=== PATIENT | female | born 1990 | race Hispanic/Latino ===

== ENCOUNTER 2024-11-09 10:05 | Emergency (ER) | payer SELFPAY ==
[~2024-11-09] VITALS: Ht 154.9 cm; Wt 87.5 kg
[2024-11-09 10:05] VITALS: BP 141/87; PULSE 101; RESP 20; TEMP 98.6
--- NOTE | 2024-11-09 10:13 | EKG ---
[facility] Test Date: 2024-11-09 Test Time: 10:06:00 Pat Name: JALEESA PAIGE Department: [facility] Room: Gender: F Instructional Designer: [id number] : 1990 Requested By: LOAN CONLEY Order Number: [id number] Reading MD: Vince Constantino Measurements Intervals [place] Rate: 104 P: 62 [place]: 155 QRS: 48 QRSD: 77 T: 28 QT: 319 QTc: 420 Interpretive Statements Sinus tachycardia No previous ECG available for comparison Electronically Signed On 11-10-2024 20:01:20 HEADING MACHINE OPERATOR by Vince Constantino Please click the below link to view image of tracing.
--- NOTE | 2024-11-09 10:19 | ERN ---
General Chief Complaint: Chest Pain Stated Complaint: CP Time Seen by MD: 10:10 Time Seen by Midlevel: 10:10 Source: patient History of Present Illness Initial Comments The patient is a 34-year-old female with a past medical history of type 2 diabetes and hyperlipidemia presenting to the emergency department with centralized chest pain that started at 12:00 a.m. today. Patient states she was woken up by the pain. She was seen at [facility] and was told it was her "gallbladder". Denies any other associated symptoms. Denies any recent travel. Denies any shortness for breath, nausea, vomiting, fever, or any other symptoms at this time. Allergies: Coded Allergies: No Known Drug Allergies (Unverified Allergy, Intermediate, 11/09/24) ROS Dictation CONSTITUTIONAL: Negative except for HPI HEAD/FACE: Negative except for HPI EENT: Negative except for HPI RESPIRATORY: Negative except for HPI GASTROINTESTINAL/ABDOMINAL: Negative except for HPI GENITOURINARY: Negative except for HPI MUSCULOSKELETAL: Negative except for HPI INTEGUMENTARY: Negative except for HPI NEUROLOGICAL/PSYCH: Negative except for HPI HEMATOLOGIC/LYMPHATIC: Negative except for HPI All Systems Negative, Except as noted above. 13 point review of systems assessed and all negative except for above. Physical Exam Physical Exam Dictation Vital Signs reviewed General Appearance: Alert, oriented x 3, no acute distress, well developed, nourished, tearful during my examination Head and Face: non-traumatic. Eyes: PERRL, pink conjunctivas, eyelid no trauma, anterior chamber with arcus senilis. Ears: Pinnas intact and no signs of trauma or erythema ear canals clear and no discharge TM no erythema Nose: No discharge, no bleeding. Oropharynx: Mouth normal, tongue pink, pharynx clear,no erythema, tonsils no exudates, no abscesses noted, mucous membrane moist Neck: Supple, non-tender, no thyromegaly, no masses, no JVD, no bruits Breast:Deferred Chest:No tenderness, no crepitus, no paradoxical movement, no retractions Lungs:Clear, well-ventilated, symmetric, no rales, no wheezing, no rhonchi, no stridor, good breath sounds bilaterally Heart: Regular rate, regular rhythm, no murmur, no gallops Vascular: no peripheral edema, Abdomen: Soft, positive bowel sounds, nondistended, no guarding, nontender, no rebound, no masses no hepatomegaly, no splenomegaly, no Anne's sign, no hernias. Rectal: Deferred Genital: Deferred Neurological: Normal speech, motor function intact, sensory function intact Musculoskeletal: Neck nontender, full range of motion, back nontender, full range of motion, Extremities: nontender, full range of motion Skin: Color pink, dry, no turgor, no rash, no lacerations, no abrasions, no contusions. Lymphatic: Deferred Results Laboratory and Microbiology Lab and Micro Result Laboratory Tests Test 11/09/24 10:33 11/09/24 10:35 11/09/24 11:16 White Blood Count 8.7 K/uL (4.8-10.8) Red Blood Count 4.37 MIL/uL (4.00-5.50) Hemoglobin 13.1 g/dL (12.0-16.0) Hematocrit 39.4 % (36-48) Mean Corpuscular Volume 90.2 fL (79-99) Mean Corpuscular Hemoglobin 30.0 pg (27.0-33.0) Mean Corpuscular Hemoglobin Concent 33.2 g/dL (32.0-36.0) Red Cell Distribution Width 12.9 % (11.0-15.5) Platelet Count 328 K/uL (130-400) Mean Platelet Volume 10.3 fL (7.5-10.5) Immature Granulocyte % (Auto) 0.5 % (0-1) Neutrophils (%) (Auto) 67.9 % (40.0-77.0) Lymphocytes (%) (Auto) 25.4 % (21.0-51.0) Monocytes (%) (Auto) 4.7 % (3.0-13.0) Eosinophils (%) (Auto) 1.0 % (0.0-8.0) Basophils (%) (Auto) 0.5 % (0.0-5.0) Neutrophils # (Auto) 5.9 K/uL (1.8-7.7) Lymphocytes # (Auto) 2.2 K/uL (1.0-4.8) Monocytes # (Auto) 0.4 K/uL (0.1-1.0) Eosinophils # (Auto) 0.09 K/uL (0.00-0.70) Basophils # (Auto) 0.04 K/uL (0.00-0.20) Absolute Immature Granulocyte (auto 0.04 K/uL (0-1) Nucleated Red Blood Cells 0.0 % (0.0-0.19) D-Dimer Quantitative (PE/DVT) 1596 ng/mL (0-500) *H Sodium Level 135 mmol/L (136-145) L Potassium Level 4.0 mmol/L (3.5-5.1) Chloride Level 102 mmol/L (101-111) Carbon Dioxide Level 24 mmol/L (21-32) Blood Urea Nitrogen 8 mg/dL (7-18) Creatinine 0.6 mg/dL (0.5-1.0) Glomerular Filtration Rate Calc 121 mL/min (>90) Random Glucose 186 mg/dL (70-105) H Total Calcium 8.9 mg/dL (8.5-10.1) Total Bilirubin 0.2 mg/dL (0.2-1.0) Direct Bilirubin 0.1 mg/dL (0.0-0.3) Aspartate Amino Transf (AST/SGOT) 11 U/L (10-37) Alanine Aminotransferase (ALT/SGPT) 22 U/L (12-78) Alkaline Phosphatase 93 U/L (50-136) Total Creatine Kinase 34 U/L (21-232) Troponin I High Sensitivity < 4 ng/L (4-50) L B-Type Natriuretic Peptide 10 pg/mL (0-100) Total Protein 7.3 g/dL (6.0-8.3) Albumin 3.1 g/dL (3.5-5.0) L Lipase 33 U/L (16-77) Urine Color LIGHT-YELLOW (YELLOW) Urine Appearance CLEAR (CLEAR) Urine pH 5.0 (5.0-8.0) Urine Specific [place] 1.029 (1.001-1.031) Urine Protein NEGATIVE mg/dL (NEGATIVE) Urine Glucose (UA) NEGATIVE mg/dL (NEGATIVE) Urine Ketones NEGATIVE mg/dL (NEGATIVE) Urine Occult Blood NEGATIVE (NEGATIVE) Urine Nitrate NEGATIVE (NEGATIVE) Urine Bilirubin NEGATIVE mg/dL (NEGATIVE) Urine Urobilinogen 0.2 mg/dL (0.2-1.0) Urine Leukocyte Esterase NEGATIVE [place]/uL Urine HCG, Qualitative NEGATIVE (NEGATIVE) Urine Opiates Screen NEGATIVE (NEGATIVE) Urine Barbiturates Screen NEGATIVE (NEGATIVE) Urine Phencyclidine Screen NEGATIVE (NEGATIVE) Urine Amphetamines Screen NEGATIVE (NEGATIVE) Urine Benzodiazepines Screen NEGATIVE (NEGATIVE) Urine Cocaine Screen NEGATIVE (NEGATIVE) Urine Marijuana (THC) Screen NEGATIVE (NEGATIVE) Troponin I < 0.05 ng/mL (0.00-0.05) Labs Reviewed?: Yes MDM Patient is a 34-year-old female presenting with chest pain. Patient was seen and evaluated at triage. Cardiac workup was initiated. EKG shows sinus tachycardia with no ST elevations or bundle branch blocks. The patient was sent back to the [facility] because it was no ER beds available. Patient was requesting pain medication. 1000 mg of Tylenol were ordered but can not be administered while patient was in the [facility]. The patient decided to leave against medical advice. ED Course Orders Procedure Category Date Status Time Vital Signs Per CPOE 11/09/24 Transmitted Routine 10:06 B-Type Natriuretic LAB 11/09/24 Complete Peptide 10:06 Chest 1vw RAD 11/09/24 Resulted 10:06 12 Lead Ekg Tracing- EKG 11/09/24 Complete Technical 10:06 Oxygen By Nc/Pulse Ox CPOE 11/09/24 Transmitted 10:06 Maintain Iv CPOE 11/09/24 Transmitted 10:06 Iv Insertion CPOE 11/09/24 Transmitted 10:06 Cardiac Monitoring CPOE 11/09/24 Transmitted 10:06 Pulse Oximetry With CPOE 11/09/24 Transmitted Vs And Prn 10:06 Cbc With Differential LAB 11/09/24 Complete 10:06 Activity: Br W/Brp CPOE 11/09/24 Transmitted With Assist 10:06 Creatine Kinase, Total LAB 11/09/24 Complete 10:06 Urinalysis Profile LAB 11/09/24 Complete 10:06 Troponin Poc Order LAB 11/09/24 Complete Only 10:06 Bedside Troponin-I LAB.ER 11/09/24 Complete (Poc) 10:06 Basic Metabolic Panel LAB 11/09/24 Complete 10:06 Troponin I High LAB 11/09/24 Complete Sensitivity 10:15 Hepatic Function Panel LAB 11/09/24 Complete 10:15 Lipase LAB 11/09/24 Complete 10:15 Drug Screen Urine LAB 11/09/24 Complete 10:15 D-Dimer LAB 11/09/24 Complete 10:17 ,Urine Test LAB 11/09/24 Complete 11:02 Acetaminophen 500mg PHA 11/09/24 Complete Tab (Tylenol 500mg T 11:30 Current Medications Medications (Trade) Dose Ordered Sig/Aleks Route PRN Reason Start Time Stop Time Status Last Admin Dose Admin Acetaminophen (TYLenol 500MG TAB) 1,000 mg ONCE ONCE PO 11/09/24 11:30 11/09/24 11:29 DC Vital Signs Date Time Temp Pulse Resp B/P (MAP) Pulse Ox O2 Delivery O2 Flow Rate FiO2 11/09/24 10:05 98.6 101 20 141/87 99 Room Air 0 [facility] [address] [place] [address] IMAGING REPORT Signed PATIENT: JALEESA PAIGE MR#: [id number] : 1990 SEX: F AGE: 34 LOCATION: [facility] ORDER 1006 STATUS: [facility] REPORT#: [id number] SERVICE 1006 REASON: CHEST PAIN ORDERING PHYSICIAN: LOAN CONLEY MD PROCEDURE: CXR1VW - CHEST 1VW CHEST 1VW REASON: CHEST PAIN COMPARISON: None. FINDINGS: Single view of the chest was obtained. Lungs are clear. Heart size is normal. There is no pulmonary vascular congestion. Mediastinum and bony thorax appear unremarkable. IMPRESSION: 1. Normal single view chest x-ray. DICTATED BY: SARAH SELLERS MD DATE: 11/09/241126 ELECTRONICALLY SIGNED BY: SARAH SELLERS MD DATE: 11/09/24 1129 DX & DISP Disposition: AMA Departure Impression: Primary Impression: Left against medical advice Condition: Against Medical Advice Referrals: SELF,REFERRAL (PCP) I have reviewed the case, and I agree with, Diagnosis and Plan I performed the substantive portion of the visit. I have reviewed and personally made and approve the management plan that is documented in the note by myself or the VAZQUEZ. I acknowledge for responsibility for the patient's management plan. ESTHER PRASAD Nov 09, 2024 10:18 LOAN CONLEY MD Nov 09, 2024 18:50
[2024-11-09 10:59] LABS: BASOPHILS # (AUTO) 0.04 K/uL (0.00-0.20); BASOPHILS % (AUTO) 0.5 % (0.0-5.0); EOSINOPHILS # (AUTO) 0.09 K/uL (0.00-0.70); HEMATOCRIT 39.4 % (36-48); IMMATURE GRANULOCYTE ABSOLUTE 0.04 K/uL (0-1); LYMPHOCYTES # (AUTO) 2.2 K/uL (1.0-4.8); LYMPHOCYTES % (AUTO) 25.4 % (21.0-51.0); MEAN CORPUSCULAR HGB CONC 33.2 g/dL (32.0-36.0); MEAN CORPUSCULAR VOLUME 90.2 fL (79-99); MONOCYTES # (AUTO) 0.4 K/uL (0.1-1.0); MONOCYTES % (AUTO) 4.7 % (3.0-13.0); NEUTROPHILS # (AUTO) 5.9 K/uL (1.8-7.7); NEUTROPHILS % (AUTO) 67.9 % (40.0-77.0); PLATELET COUNT (AUTO) 328 K/uL (130-400); RED BLOOD CELL COUNT(AUTO) 4.37 MIL/uL (4.00-5.50); RED CELL DISTRIBUTION WIDTH 12.9 % (11.0-15.5); WHITE BLOOD COUNT (AUTO) 8.7 K/uL (4.8-10.8)
[2024-11-09 11:09] LABS: CREATININE 0.6 mg/dL (0.5-1.0)
[2024-11-09 11:12] LABS: AMPHET/METH SCREEN,URINE NEGATIVE (NEGATIVE); BARBITURATE SCREEN, URINE NEGATIVE (NEGATIVE); BENZODIAZEPINES SCREEN,URINE NEGATIVE (NEGATIVE); CANNABINOID SCREEN,URINE NEGATIVE (NEGATIVE); COCAINE SCREEN,URINE NEGATIVE (NEGATIVE); OPIATE SCREEN,URINE NEGATIVE (NEGATIVE); PHENCYCLIDINE SCREEN,URINE NEGATIVE (NEGATIVE)
[2024-11-09 11:14] LABS: ALBUMIN 3.1 g/dL (3.5-5.0); BILIRUBIN,DIRECT 0.1 mg/dL (0.0-0.3); BILIRUBIN,TOTAL 0.2 mg/dL (0.2-1.0); TOTAL PROTEIN, SERUM 7.3 g/dL (6.0-8.3)
[2024-11-09 11:25] LABS: APPEARANCE,URINE CLEAR (CLEAR); BILIRUBIN,URINE NEGATIVE (NEGATIVE); COLOR,URINE LIGHT-YELLOW (YELLOW); GLUCOSE, URINE (UA) NEGATIVE (NEGATIVE); KETONES,URINE NEGATIVE (NEGATIVE); LEUKOCYTE ESTERASE ,URINE NEGATIVE Leu/uL (NEGATIVE); NITRATE,URINE NEGATIVE (NEGATIVE); OCCULT BLOOD,URINE NEGATIVE (NEGATIVE); PROTEIN,URINE NEGATIVE (NEGATIVE); UROBILINOGEN,URINE 0.2 mg/dL (0.2-1.0)
[2024-11-09 11:27] LABS: ADD UA MICROSCOPIC NO
--- NOTE | 2024-11-09 11:29 | HMCIMG ---
CHEST 1VW REASON: CHEST PAIN COMPARISON: None. FINDINGS: Single view of the chest was obtained. Lungs are clear. Heart size is normal. There is no pulmonary vascular congestion. Mediastinum and bony thorax appear unremarkable. IMPRESSION: 1. Normal single view chest x-ray.
[2024-11-09] MEDS ORDERED: acetaMINOPHEN 500 MG TABLET PO ONE (11:30)
[2024-11-09 11:42] LABS: B-TYPE NATRIURETIC PEPTIDE 10 pg/mL (0-100)
--- NOTE | 2024-11-09 13:00 | NUR ---
CRITICAL LAB RESULT RECEIVED D DIMER 1596 NOTIFED Talon GARCIA, AWARE.
== END 2024-11-09 11:28 | disposition left against medical advice (07) ==
LOC: EDH 10:05
DX: R07.89 Other chest pain (principal); E11.9 Type 2 diabetes mellitus without complications; E78.5 Hyperlipidemia, unspecified; Z79.899 Other long term (current) drug therapy
CPT/HCPCS: 36415; 71045; 80048; 80076; 80305; 81003; 81025; 82550; 83690; 83880; 84484; 85025; 85378; 93005; 99285